=== PATIENT | female | born 1995 | race Two or more races ===

== ENCOUNTER 2017-03-25 01:02 | Emergency (ER) | payer MEDICAID ==
[2017-03-25 01:59] LABS: ABSOLUTE EOSINOPHILS # (AUTO) 0.2 10^3/uL (0.0-0.6); ABSOLUTE LYMPHOCYTES (AUTO) 2.1 10^3/uL (0.5-4.7); ABSOLUTE MONOCYTES (AUTO) 0.7 10^3/uL (0.1-1.4); ABSOLUTE NEUT (AUTO) 5.6 10^3/uL (1.7-8.2); BASOPHILS % (AUTO) 0.4 % (0-2); EOSINOPHILS % (AUTO) 2.6 % (0-6); HEMATOCRIT 32.3 % (36.0-47.0); HEMOGLOBIN 10.3 g/dL (12.0-15.5); HGB HCT DIFFERENCE -1.4; LYMPHOCYTES % (AUTO) 23.9 % (13-45); MEAN CORPUSCULAR HEMOGLOBIN 23.8 pg (27.0-33.4); MEAN CORPUSCULAR HGB CONC 31.9 g/dL (32.0-36.0); MEAN CORPUSCULAR VOLUME 75 fl (80-97); MONOCYTES % (AUTO) 7.9 % (3-13); RED BLOOD COUNT 4.32 10^6/uL (3.72-5.28); RED CELL DISTRIBUTION WIDTH 14.8 % (11.5-14.0); SEGMENTED NEUTROPHILS % (AUTO) 65.2 % (42-78); WHITE BLOOD COUNT 8.6 10^3/uL (4.0-10.5)
[2017-03-25 02:05] LABS: APPEARANCE,URINE SLIGHTLY-CLOUDY; BILIRUBIN,URINE NEGATIVE (NEGATIVE); GLUCOSE, URINE NEGATIVE (NEGATIVE); KETONES,URINE NEGATIVE (NEGATIVE); LEUKOCYTE ESTERASE,URINE NEGATIVE (NEGATIVE); NITRITE,URINE NEGATIVE (NEGATIVE); PROTEIN,URINE 30 mg/dL (NEGATIVE); URINE SPECIFIC GRAVITY 1.023; UROBILINOGEN,URINE NEGATIVE mg/dL (<2.0)
[2017-03-25 02:11] LABS: ALANINE AMINOTRANSFERASE 26 U/L (9-52); ALBUMIN 3.7 g/dL (3.5-5.0); ALKALINE PHOSPHATASE 75 U/L (38-126); ANION GAP 12 (5-19); ASPARTATE AMINO TRANSFERASE 20 U/L (14-36); BILIRUBIN,DIRECT 0.3 mg/dL (0.0-0.4); BILIRUBIN,TOTAL 0.3 mg/dL (0.2-1.3); BLOOD UREA NITROGEN 10 mg/dL (7-20); CALCIUM 9.6 mg/dL (8.4-10.2); CARBON DIOXIDE 28 mmol/L (22-30); CHLORIDE 104 mmol/L (98-107); CREATININE RESULT 0.86 mg/dL (0.52-1.25); GLUCOSE 118 mg/dL (75-110); LIPASE 43.6 U/L (23-300); POTASSIUM 3.7 mmol/L (3.6-5.0); SODIUM 143.7 mmol/L (137-145); TOTAL PROTEIN 7.8 g/dL (6.3-8.2)
--- NOTE | 2017-03-25 03:31 | ER Document Report ---
ED General - General Chief Complaint: Abdominal Pain Stated Complaint: ABDOMINAL PAIN Time Seen by Provider: 03/25/17 02:52 Notes: Patient is a 21-year-old female who presents with complaint of left-sided pain. Pain is mainly left back and comes on left side. She says it has been intermittent for months. She said today became worse. She denies being on her menstrual period. No dysuria. No abnormal vaginal discharge or bleeding. No fevers. No history of kidney stones. No other complaints at this time. TRAVEL OUTSIDE OF THE [place] IN LAST 30 DAYS: No - Related Data Allergies/Adverse Reactions: ibuprofen [From Advil] Adverse Reaction (Verified 03/25/17 01:09) naproxen [From Aleve] Adverse Reaction (Verified 03/25/17 01:09) quetiapine fumarate [From Seroquel] Adverse Reaction (Verified 07/31/16 08:50) felt like brain exploded Past Medical History - Social History Smoking Status: Unknown if Ever Smoked Chew tobacco use (# tins/day): No Frequency of alcohol use: None Drug Abuse: None Family History: Reviewed & Not Pertinent Patient has suicidal ideation: No Patient has homicidal ideation: No Renal/ Medical History: Denies: Hx Peritoneal Dialysis Psychiatric Medical History: Reports: Hx Attention Deficit Hyperactivity Disorder, Hx Depression - Immunizations Immunizations up to date: Yes Hx Diphtheria, Pertussis, Tetanus Vaccination: Yes Review of Systems - Review of Systems Notes: My Normal Review Basic REVIEW OF SYSTEMS: CONSTITUTIONAL : Denies fever, chills, or sweats. Denies recent illness. CARDIOVASCULAR: Denies chest pain. RESPIRATORY: Denies cough, cold, or chest congestion. Denies shortness of breath, difficulty breathing, or wheezing. GASTROINTESTINAL: Denies abdominal pain. Denies nausea, vomiting, or diarrhea. Denies constipation. Last BM: GENITOURINARY: Denies difficulty urinating, painful urination, burning, frequency, or blood in urine. FEMALE GENITOURINARY: Denies vaginal bleeding, abnormal or irregular periods. LMP: MUSCULOSKELETAL: Back pain SKIN: Denies rash or skin lesions. NEUROLOGICAL: Denies altered mental status or loss of consciousness. Denies headache. Denies weakness or paralysis or loss of use of either side. Denies problems with gait or speech. Denies sensory or motor loss. ALL OTHER SYSTEMS REVIEWED AND NEGATIVE. Physical Exam - Vital signs Vitals: Temp Pulse Resp BP Pulse Ox 98 F 85 16 105/69 98 03/25/17 01:07 03/25/17 01:07 03/25/17 01:07 03/25/17 01:07 03/25/17 01:07 - Notes Notes: General Appearance: Well nourished, alert, cooperative, no acute distress, no obvious discomfort. Vitals: reviewed, See vital signs table. Head: no swelling or tenderness to the head Eyes: PERRL, EOMI, Conjuctiva clear Mouth: No decreasd moisture Lungs: No wheezing, No rales, No rhonci, No accessory muscle use, good air exchange bilaterally. Heart: Normal rate, Regular rythm, No murmur, no rub Abdomen: Normal BS, soft, No rigidity, mild left flank and left lower anterior abdominal tenderness to palpation., No guarding, no rebound, no abdominal masses , no organomegaly. Pelvic exam: Normal external genitalia. No blood on speculum exam. no abnormal discharge. some pain during exam. Back: Mild left-sided back pain to palpation. Extremities: strength 5/5 in all extremities, good pulses in all extremities, no swelling or tenderness in the extremities, no edema. Skin: warm, dry, appropriate color, no rash Neuro: speech clear, oriented x 3, normal affect, responds appropriately to questions. Course - Vital Signs Vital signs: Temp Pulse Resp BP Pulse Ox 98.0 F 88 16 108/70 100 03/25/17 05:00 03/25/17 05:00 03/25/17 05:00 03/25/17 05:00 03/25/17 05:00 - Laboratory Result Diagrams: 03/25/17 01:35 03/25/17 01:35 Laboratory results interpreted by me: 03/25/17 03/25/17 03/25/17 01:35 01:35 01:40 Hgb 10.3 L Hct 32.3 L MCV 75 L MCH 23.8 L MCHC 31.9 L RDW 14.8 H Glucose 118 H Urine Protein 30 H Urine Blood LARGE H - Transfer of Care Notes: 03/25/17 06:[address] scan showed mild diverticulitis. There is also a cystic type structure and therefore we did obtain an ultrasound which shows that this is related to the ovary. I did inform the patient it is extremely important that she does follow up with repeat ultrasounds. I gave her the number to the wrapper sorter pig iron loader, Dr. Cox, for evaluation. Also the patient is very young to have diverticulitis. I think support she follows up with a GI doctor to see if she needs potential colonoscopy to determine if there is anything else that could be causing this appearance on the CT scan. I will place her on antibiotics. I encouraged her to follow-up closely with the GI physician. Encouraged to return to ER if she has severe abdominal pain, fevers, vomiting, or if she feels that she is worsening in any way. Patient agrees with plan and will be discharged home. Dictation of this chart was performed using voice recognition software; therefore, there may be some unintended grammatical errors. Discharge - Discharge Clinical Impression: Lesion of ovary Abdominal pain Qualifiers: Abdominal location: left lower quadrant Qualified Code(s): R10.32 - Left lower quadrant pain Diverticulitis Qualifiers: Diverticulitis site: large intestine Diverticulitis bleeding: without bleeding Diverticulitis complication: without perforation or abscess Qualified Code(s): K57.32 - Diverticulitis of large intestine without perforation or abscess without bleeding Condition: Good Disposition: HOME, SELF-CARE Instructions: Oral Narcotic Medication ([facility]) Additional Instructions: Your CT scan showed mild diverticulitis which would explain your pain and diarrhea. Please take the antibiotics as prescribed. Diverticulitis in young people is rare and therefore you need to follow up with the GI physician, Dr. Phillips, for reevaluation and possible colonoscopy to make sure there is not another cause to the findings on your CT scan. Your ultrasound showed a lesion on your ultrasound. This needs to be followed up by the Machinery Cleaner to be followed with repeat ultrasounds to make sure it is not increaseing in size. If it is changing you may need a biopsy to rule out any form of ovarian cancer. Please return to the ER immediately if you have worsening pain, intractable vomiting, bloody stool, or feel unwell. Prescriptions: Ciprofloxacin HCl [Cipro 500 mg Tablet] 500 mg PO BID #14 tablet Metronidazole [Flagyl 500 mg Tablet] 500 mg PO Q6H #28 tablet Forms: Return to Work Referrals: PENNY PHILLIPS MD [ACTIVE STAFF] - Follow up in 3-5 days TOMAS CHOWDHURY MD [ACTIVE STAFF] - Follow up in 3-5 days
--- NOTE | 2017-03-25 03:48 | RADIOLOGY REPORT (SQ) ---
EXAM DESCRIPTION: CT LTD RENAL STONE PROTOCOL ON COMPLETED DATE/TIME: 03/25/2017 3:20 am REASON FOR STUDY: left abdominal pain COMPARISON: None. TECHNIQUE: CT scan of the abdomen and pelvis performed without intravenous or oral contrast. Images reviewed with lung, soft tissue, and bone windows. Reconstructed coronal and sagittal MPR images revi ewed. All images stored on PACS. All CT scanners at this facility use dose modulation, iterative reconstruction, and/or weight based d osing when appropriate to reduce radiation dose to as low as reasonably achievable (ALARA). [facility]: Dose Right [facility]: CareDose [facility]: Dose Right [facility]: Teradose 4D [facility]: [employer] RADIATION DOSE: 6.21mGy. LIMITATIONS: None. FINDINGS: LOWER CHEST: No significant findings. No nodules or infiltrates. NON-CONTRASTED LIVER, SPLEEN, ADRENALS: Evaluation limited by lack of IV contrast. No identified sign ificant masses. PANCREAS: No masses. No peripancreatic inflammatory changes. GALLBLADDER: No identified stones by CT criteria. No inflammatory changes to suggest cholecystitis. RIGHT KIDNEY AND URETER: No suspicious masses. Assessment limited by lack of IV contrast. Punctate nephrolithiasis. No hydronephrosis or hydroureter. LEFT KIDNEY AND URETER: No suspicious masses. Assessment limited by lack of IV contrast. Renal ston es measuring up to 0.4 cm. No hydronephrosis or hydroureter. AORTA AND RETROPERITONEUM: No aneurysm. No retroperitoneal masses or adenopathy. BOWEL AND PERITONEAL CAVITY: Mild proximal sigmoid diverticulitis. Likely cystic prominence of bilat eral ovarian fossa measuring up to 5.6 cm on the left and 5.3 cm on the right. APPENDIX: Normal. PELVIS, BLADDER, AND ABDOMINAL WALL:Nonspecific prominence of likely, bilateral ovaries measuring up to 5.6 cm on the left and 5.3 cm on the right No free fluid. Bladder normal. BONES: No significant findings. OTHER: No other significant finding. IMPRESSION: 1. Mild proximal sigmoid diverticulitis. There is cystic prominence of within bilatera l ovarian fossae probably due to prominent ovaries measuring up to 5.6 cm; cannot completely exclude a diverticular/tubo-ovarian abscess. Consider further evaluation with pelvic sonogram and/or IV/oral contrast CT correlation. 2. Bilateral nephrolithiasis. TECHNICAL DOCUMENTATION: JOB ID: [id number] Quality ID # [id number]: Final reports with documentation of one or more dose reduction techniques (e.g., Au tomated exposure control, adjustment of the mA and/or kV according to patient size, use of iterative reconstruction technique) 2010 [employer]- All Rights Reserved
--- NOTE | 2017-03-25 05:54 | RADIOLOGY REPORT (SQ) ---
EXAM DESCRIPTION: U/S NON OB PEL TV W/DOPPLER COMPLETED DATE/TIME: 03/25/2017 5:41 am REASON FOR STUDY: cystic mass seen on CT COMPARISON: None. TECHNIQUE: Dynamic and static grayscale images acquired of the pelvis via transvaginal approach and recorded on PACS. Additional selected color Doppler and spectral images recorded. LIMITATIONS: None. FINDINGS: UTERUS: Contour normal. No mass. ENDOMETRIAL STRIPE: No focal or generalized thickening. No masses. CERVIX: No nabothian cysts. RIGHT OVARY: No abnormal masses. RIGHT OVARY DOPPLER: Normal arterial vascular flow without evidence for torsion. LEFT OVARY: 4.1 x 3.0 x 3.5 cm hypoechoic avascular mass. LEFT OVARY DOPPLER: Normal arterial vascular flow without evidence for torsion. FREE FLUID: None noted. OTHER: No other significant finding. MEASUREMENTS: UTERUS: 7.2 x 4 x 3 cm ENDOMETRIAL STRIPE: 0.3 cm thickness. RIGHT OVARY: 5.1 cm. LEFT OVARY: 5.0 cm. IMPRESSION: 1. Indeterminate 4.1 cm hypoechoic left ovarian lesion; differential diagnosis includes enlarged follicular cyst, endometrioma, or other neoplasm. Ultrasound surveillance recommended in 6 weeks. 2. Endometrial atrophy. 3. No evidence of abscess, as queried. No free fluid. TECHNICAL DOCUMENTATION: JOB ID: [id number] [employer]- All Rights Reserved
[2017-03-25] MEDS ORDERED: METRONIDAZOLE 500 MG TABLET PO ONE (06:03)
[2017-03-25] MEDS ORDERED: CIPROFLOXACIN HCL 500 MG TABLET PO ONE (06:03)
[2017-03-25] MEDS ORDERED: HYDROCODONE/ACETAMINOPHEN 5-325 MG 6 TAB/DSPK PO PRN (06:04)
[2017-03-25 06:19] VITALS: BP 110/71
[2017-03-25 07:24] LABS: CHLAM PCR DETECTED (NOT DETECT)
== END 2017-03-25 06:17 | disposition home or self-care (01) ==
LOC: ER 01:02
DX: K57.32 Diverticulitis of large intestine without perforation or abscess without bleeding (principal); N83.9 Noninflammatory disorder of ovary, fallopian tube and broad ligament, unspecified; R10.32 Left lower quadrant pain; M54.9 Dorsalgia, unspecified
CPT/HCPCS: 99284; 36415; 87210; 83690; 85025; 81025; 80053; 81001; 87491; 87591; 76830; 93976; 76380; J3490 ×2

== ENCOUNTER 2017-05-23 21:38 | Emergency (ER) | payer MEDICAID ==
[2017-05-23 22:33] VITALS: BP 114/70
--- NOTE | 2017-05-23 22:47 | ER Document Report ---
ED Medical Screen (RME) - General Chief Complaint: Sore Throat Stated Complaint: BACK PAIN/LUMP ON CHEST Time Seen by Provider: 05/23/17 22:46 Notes: 21-year-old female, chief complaint of sore throat and swollen lymph nodes in her neck. Denies fever. States her boyfriend was also sick. Denies any other symptoms. TRAVEL OUTSIDE OF THE [place] IN LAST 30 DAYS: No - Related Data Allergies/Adverse Reactions: ibuprofen [From Advil] Adverse Reaction (Verified 05/23/17 22:31) naproxen [From Aleve] Adverse Reaction (Verified 05/23/17 22:31) quetiapine fumarate [From Seroquel] Adverse Reaction (Verified 05/23/17 22:31) felt like brain exploded Past Medical History Renal/ Medical History: Denies: Hx Peritoneal Dialysis Psychiatric Medical History: Reports: Hx Attention Deficit Hyperactivity Disorder, Hx Depression Surgical Hx: Negative - Immunizations Immunizations up to date: Yes Hx Diphtheria, Pertussis, Tetanus Vaccination: Yes Physical Exam - Vital signs Vitals: Temp Pulse Resp BP Pulse Ox 99.6 F 83 17 114/70 98 05/23/17 22:30 05/23/17 22:30 05/23/17 22:30 05/23/17 22:30 05/23/17 22:30 - HEENT Pharynx: Erythema, Tonsillar hypertrophy. No: Uvular edema, Potential airway comprom. Neck: Anterior cervical chain - Abdominal Tenderness: Tender - Complains of pain with palpation of the left abdomen in the mid upper quadrants, limited exam because of sitting Course - Vital Signs Vital signs: Temp Pulse Resp BP Pulse Ox 99.6 F 83 17 114/70 98 05/23/17 22:30 05/23/17 22:30 05/23/17 22:30 05/23/17 22:30 05/23/17 22:30
[2017-05-23] MEDS ORDERED: DEXAMETHASONE SOD PHOS INJ 10 MG/1 ML VIAL IM ONE (23:36)
[2017-05-23] MEDS ORDERED: PENICILLIN V POTASSIUM 500 MG TABLET PO ONE (23:36)
--- NOTE | 2017-05-23 23:38 | ER Document Report ---
HPI - HPI Patient complains to provider of: sore throat Pain Level: 5 Context: Patient is a 21 year old female that comes to the ED for chief complaint of sore throat for the past 2 days. She also reports pain at the front of her neck. She denies difficulty breathing, fever, headache. She denies any daily medications, had a recent menstrual cycle. - REPRODUCTIVE LMP: currently spotting Reproductive: DENIES: : - DERM Skin Color: Normal Past Medical History - General Information source: Patient - Social History Smoking Status: Never Smoker Drug Abuse: None Lives with: Family Family History: Reviewed & Not Pertinent - Medical History Medical History: Negative Renal/ Medical History: Denies: Hx Peritoneal Dialysis Psychiatric Medical History: Reports: Hx Attention Deficit Hyperactivity Disorder, Hx Depression Surgical Hx: Negative - Immunizations Immunizations up to date: Yes Hx Diphtheria, Pertussis, Tetanus Vaccination: Yes Vertical Provider Document - CONSTITUTIONAL General Appearance: WD/WN, No Apparent Distress - Patient is talkative and well- appearing - INFECTION CONTROL TRAVEL OUTSIDE OF THE [place] IN LAST 30 DAYS: No - HEENT HEENT: Atraumatic, Normocephalic, Pharyngeal Exudate, Pharyngeal Tenderness, Pharyngeal Erythema. negative: Normal ENT Exam - NECK Neck: Lymphadenopathy-Left, Lymphadenopathy-Right - RESPIRATORY Respiratory: Breath Sounds Normal, No Respiratory Distress O2 Sat by Pulse Oximetry: 98 - CARDIOVASCULAR Cardiovascular: Regular Rate, Regular Rhythm - GI/ABDOMEN Gastrointestinal: Abdomen Soft, Abdomen Non-Tender - NEURO Motor/Sensory: No Motor Deficit, No Sensory Deficit - DERM Integumentary: Warm, Dry, No Rash Course - Re-evaluation Re-evalutation: Physical examination is consistent with tonsillar hypertrophy no evidence of peritonsillar abscess, Vitaliy's angina, or other concerning abnormality. Strep test is positive. No splenomegaly on examination. Treating with penicillin, dexamethasone. Discussed follow-up and return precautions. Patient states understanding and agreement. - Vital Signs Vital signs: Temp Pulse Resp BP Pulse Ox 99.6 F 83 17 114/70 98 05/23/17 22:30 05/23/17 22:30 05/23/17 22:30 05/23/17 22:30 05/23/17 22:30 Discharge - Discharge Clinical Impression: Strep pharyngitis, Anterior cervical lymphadenopathy Condition: Stable Disposition: HOME, SELF-CARE Additional Instructions: You are positive for strep throat. Take the penicillin as prescribed to completion. Take Tylenol or ibuprofen for pain if needed. Follow-up with primary care. Return to emergency department for any concerning or worsening symptoms including spiking fever, difficulty swallowing secretions, or any other concerning symptoms. Prescriptions: Penicillin V Potassium [Penicillin Vk 500 mg Tablet] 500 mg PO BID #20 tablet
== END 2017-05-23 23:45 | disposition home or self-care (01) ==
LOC: ER 21:38
DX: J02.0 Streptococcal pharyngitis (principal); R59.1 Generalized enlarged lymph nodes; M54.2 Cervicalgia
CPT/HCPCS: 99283; 96372; 87880; J3490; J1100

== ENCOUNTER 2017-10-17 17:31 | Emergency (ER) | payer MEDICAID ==
[2017-10-17 18:00] VITALS: BP 117/77
--- NOTE | 2017-10-17 20:29 | ER Document Report ---
ED ENT - General Chief Complaint: Sore Throat Stated Complaint: SORE THROAT Time Seen by Provider: 10/17/17 19:39 Mode of Arrival: Ambulatory Information source: Patient Notes: 21-year-old female presents to ED for complaint of sore throat nasal congestion pain in her ears and concerned that she is and does not have the money to get a test. She is alert oriented pupils equal react light steady gait speaks in full sentences no difficulty swallowing or talking. TRAVEL OUTSIDE OF THE [place] IN LAST 30 DAYS: No - HPI Patient complains to provider of: Ear problem, Nose problem, Throat problem Onset: Other - "Last few days " Onset/Duration: Intermittent Quality of pain: Sharp Severity: Moderate Pain Level: 4 Context: Recent Illness Location of pain: Nose, Sinus, Throat Associated symptoms: Cough, Ear pain, Runny nose, Sinus pain, Sinus drainage Similar symptoms previously: Yes Recently seen / treated by doctor: No - Related Data Allergies/Adverse Reactions: ibuprofen [From Advil] Adverse Reaction (Verified 10/17/17 17:31) naproxen [From Aleve] Adverse Reaction (Verified 10/17/17 17:31) quetiapine fumarate [From Seroquel] Adverse Reaction (Verified 10/17/17 17:31) felt like brain exploded Past Medical History - General Information source: Patient - Social History Smoking Status: Current Every Day Smoker Cigarette use (# per day): Yes - 5 cigarettes a day Chew tobacco use (# tins/day): No Smoking Education Provided: Yes - 3 minutes Frequency of alcohol use: Occasional Drug Abuse: Marijuana Occupation: None Lives with: Spouse/Significant other Family History: Reviewed & Not Pertinent Patient has suicidal ideation: No Patient has homicidal ideation: No - Past Medical History Cardiac Medical History: Reports: None Pulmonary Medical History: Reports: None EENT Medical History: Reports: None Neurological Medical History: Reports: None Endocrine Medical History: Reports: None Renal/ Medical History: Reports: Hx Pelvic Inflammatory Disease Malignancy Medical History: Reports: None GI Medical History: Reports: None Musculoskeltal Medical History: Reports None Psychiatric Medical History: Reports: Hx Attention Deficit Hyperactivity Disorder, Hx Depression Traumatic Medical History: Reports: None Infectious Medical History: Reports: None Surgical Hx: Negative Past Surgical History: Reports: None - Immunizations Immunizations up to date: Yes Hx Diphtheria, Pertussis, Tetanus Vaccination: Yes Review of Systems - Review of Systems Constitutional: Recent illness EENT: Nose discharge, Sinus discharge, Throat pain Cardiovascular: No symptoms reported Respiratory: Cough Gastrointestinal: No symptoms reported Genitourinary: No symptoms reported Female Genitourinary: No symptoms reported Musculoskeletal: No symptoms reported Skin: No symptoms reported Hematologic/Lymphatic: No symptoms reported Neurological/Psychological: No symptoms reported -: Yes All other systems reviewed and negative Physical Exam - Vital signs Vitals: Temp Pulse Resp BP Pulse Ox 99.3 F 109 H 20 117/77 99 10/17/17 18:00 10/17/17 18:00 10/17/17 18:00 10/17/17 18:00 10/17/17 18:00 Interpretation: Normal - General General appearance: Appears well, Alert - HEENT Head: Normocephalic, Atraumatic Eyes: Normal Pupils: PERRL Ears: Normal External canal: Normal Tympanic membrane: Normal Sinus: Normal Nasal: Purulent discharge, Swelling Mouth/Lips: Normal Mucous membranes: Normal Pharynx: Post nasal drainage, Tonsillar hypertrophy, Other - Tonsil stones. No : Exudate Neck: Normal - Respiratory Respiratory status: No respiratory distress Chest status: Nontender Breath sounds: Normal, Nonproductive cough Chest palpation: Normal - Cardiovascular Rhythm: Regular Heart sounds: Normal auscultation Murmur: No - Abdominal Inspection: Normal Distension: No distension Bowel sounds: Normal Tenderness: Nontender Organomegaly: No organomegaly - Back Back: Normal, Nontender - Extremities General upper extremity: Normal inspection, Nontender, Normal color, Normal ROM , Normal temperature General lower extremity: Normal inspection, Nontender, Normal color, Normal ROM , Normal temperature, Normal weight bearing. No: Lizz's sign - Neurological Neuro grossly intact: Yes Cognition: Normal Orientation: AAOx4 [place] Coma Scale Eye Opening: Spontaneous [place] Coma Scale Verbal: Oriented [place]im Coma Scale Motor: Obeys Commands [place] Coma Scale Total: 15 Speech: Normal Motor strength normal: LUE, RUE, LLE, RLE Sensory: Normal - Psychological Associated symptoms: Normal affect, Normal mood - Skin Skin Temperature: Warm Skin Moisture: Dry Skin Color: Normal Course - Re-evaluation Re-evalutation: 10/18/17 01:41 Lab results discussed with patient patient discharged home. Patient had assessment consistent with upper respiratory infection and a viral sore throat. She insisted that she has frequent strep and she would rather be tested. She also stated she was concerned that she was and did not have the money to buy a test. Swab was sent for a strep test and urine sent for test both of which were negative. - Vital Signs Vital signs: Temp Pulse Resp BP Pulse Ox 99.3 F 109 H 20 117/77 99 10/17/17 18:00 10/17/17 18:00 10/17/17 18:00 10/17/17 18:00 10/17/17 18:00 - Laboratory Laboratory results interpreted by me: 10/17/17 20:20 Urine Urobilinogen 2.0 H Urine Ascorbic Acid 40 H Discharge - Discharge Clinical Impression: URI (upper respiratory infection) Qualifiers: URI type: unspecified URI Qualified Code(s): J06.9 - Acute upper respiratory infection, unspecified Disposition: HOME, SELF-CARE Instructions: Family Physicians / Practices Additional Instructions: UPPER RESPIRATORY ILLNESS: You have a viral infection of the respiratory passages -- a "cold." This common infection causes nasal congestion, drainage, and often sore throat and cough. It is highly contagious. The disease usually lasts about 10 to 14 days. There is no "cure" for the viral infection -- it must run its course. If there is a complication, such as bacterial infection in the nose, sinuses, middle ear, or bronchial tubes, antibiotics may be required. The antibiotics won't affect the virus. Drink plenty of fluids. A humidifier may help. An expectorant medication or decongestant may make you more comfortable. Use acetaminophen or ibuprofen for fever or aches. See the doctor if fever persists over two days, if there is any significant worsening of your symptoms, or if you simply fail to improve as expected. DECONGESTANT MEDICATION: A decongestant medicine has been prescribed. Often this medicine is combined in the same tablet with an antihistamine or expectorant. This type of medicine is helpful in treating a bad cold or sinus condition, as well as in treatment of the nasal congestion of hay fever. It is not of much benefit for lung infections. Decongestant medicines are related to stimulants. They can cause an increase in blood pressure and heart rate. Persons with heart disease and high blood pressure should not take decongestants without discussing this with the physician. If you develop palpitations, chest pain, headache, or tremors, stop the medicine and consult your physician. COUGH-SUPPRESSANT & EXPECTORANT MEDICATION: You are to use a cough medication as needed for relief of symptoms. This medicine is a combination of an expectorant (to make the mucous thinner and more easily "coughed up") and a cough suppressant (to reduce the frequency of coughing). The cough-suppressant medicine is related to narcotics. You may experience mild nausea and sleepiness. Some patients who are very sensitive to narcotics may have stomach pain from this medicine. Taking the medicine with food reduces these side effects. Do not drive or work with machinery until you know how this medicine affects you. The expectorant should have no side effects. Iodine-containing expectorants (such as organidin) should not be taken by persons with active thyroid disease unless approved by your doctor. Call the doctor if you develop shortness of breath, hives, rash, itching, lightheadedness, or severe nausea and vomiting. USE OF ACETAMINOPHEN (Tylenol): Acetaminophen may be taken for pain relief or fever control. It's much safer than aspirin, offering a wider range of "safe" dosages. It is safe during . Some brand names are Tylenol, Panadol, Datril, Anacin 3, Tempra, and Liquiprin. Acetaminophen can be repeated every four hours. The following are maximum recommended dosages: >89 pounds or adults 650 mg to 900 mg Acetaminophen can be repeated every four hours. Maximum dose not to exceed 4000 mg a day. SMOKING: If you smoke, you should stop smoking. The tar and chemicals in cigarette smoke are harmful. Smoking has been shown to cause: emphysema chronic bronchitis lung cancer mouth and throat cancer stomach and pancreas cancer premature aging defects In addition, smoking increases ear and lung infections in children of smokers. FOLLOW-UP CARE: If you have been referred to a physician for follow-up care, call the physician s office for an appointment as you were instructed or within the next two days. If you experience worsening or a significant change in your symptoms, notify the physician immediately or return to the Emergency Department at any time for re-evaluation. Forms: Smoking Cessation Education
[2017-10-17 20:45] LABS: AMORPHOUS SEDIMENT,URINE 1+ /HPF; APPEARANCE,URINE SLIGHTLY-CLOUDY; BILIRUBIN,URINE NEGATIVE (NEGATIVE); COLOR,URINE YELLOW; GLUCOSE, URINE NEGATIVE (NEGATIVE); KETONES,URINE NEGATIVE (NEGATIVE); LEUKOCYTE ESTERASE,URINE NEGATIVE (NEGATIVE); NITRITE,URINE NEGATIVE (NEGATIVE); PROTEIN,URINE NEGATIVE (NEGATIVE); URINE SPECIFIC GRAVITY 1.024
== END 2017-10-17 21:10 | disposition home or self-care (01) ==
LOC: ER 17:31
DX: J02.9 Acute pharyngitis, unspecified (principal); J35.8 Other chronic diseases of tonsils and adenoids; R09.81 Nasal congestion; H92.03 Otalgia, bilateral; J34.89 Other specified disorders of nose and nasal sinuses; R05 Cough; F17.210 Nicotine dependence, cigarettes, uncomplicated; Z71.6 Tobacco abuse counseling; Z32.02 Encounter for pregnancy test, result negative
CPT/HCPCS: 81001; 81025; 87070; 87880; 99283

== ENCOUNTER 2017-11-25 13:34 | Emergency (ER) | payer MEDICAID ==
[2017-11-25] MEDS ORDERED: ONDANSETRON 4 MG TAB.RAPDIS PO ONE (15:44)
[2017-11-25] MEDS ORDERED: ACETAMINOPHEN 325 MG TABLET PO ONE (16:04)
[2017-11-25 16:57] LABS: ABSOLUTE EOSINOPHILS # (AUTO) 0.1 10^3/uL (0.0-0.6); ABSOLUTE LYMPHOCYTES (AUTO) 2.4 10^3/uL (0.5-4.7); ABSOLUTE MONOCYTES (AUTO) 0.5 10^3/uL (0.1-1.4); ABSOLUTE NEUT (AUTO) 3.6 10^3/uL (1.7-8.2); BASOPHILS % (AUTO) 0.7 % (0-2); EOSINOPHILS % (AUTO) 1.9 % (0-6); HEMATOCRIT 36.1 % (36.0-47.0); HEMOGLOBIN 11.8 g/dL (12.0-15.5); MEAN CORPUSCULAR HEMOGLOBIN 24.3 pg (27.0-33.4); MEAN CORPUSCULAR HGB CONC 32.5 g/dL (32.0-36.0); MEAN CORPUSCULAR VOLUME 75 fl (80-97); PLATELET COUNT 301 10^3/uL (150-450); RED BLOOD COUNT 4.83 10^6/uL (3.72-5.28); RED CELL DISTRIBUTION WIDTH 15.5 % (11.5-14.0); SEGMENTED NEUTROPHILS % (AUTO) 53.4 % (42-78); TOTAL CELLS COUNTED % (AUTO) 100 %; WHITE BLOOD COUNT 6.8 10^3/uL (4.0-10.5)
[2017-11-25 17:05] LABS: APPEARANCE,URINE CLEAR; BILIRUBIN,URINE NEGATIVE (NEGATIVE); COLOR,URINE STRAW; GLUCOSE, URINE NEGATIVE (NEGATIVE); KETONES,URINE NEGATIVE (NEGATIVE); LEUKOCYTE ESTERASE,URINE NEGATIVE (NEGATIVE); NITRITE,URINE NEGATIVE (NEGATIVE); PROTEIN,URINE NEGATIVE (NEGATIVE); URINE SPECIFIC GRAVITY 1.004; UROBILINOGEN,URINE NEGATIVE mg/dL (<2.0)
[2017-11-25 17:13] LABS: ALANINE AMINOTRANSFERASE 28 U/L (9-52); ALBUMIN 4.4 g/dL (3.5-5.0); ALKALINE PHOSPHATASE 49 U/L (38-126); ANION GAP 10 (5-19); ASPARTATE AMINO TRANSFERASE 25 U/L (14-36); BILIRUBIN,DIRECT 0.1 mg/dL (0.0-0.4); BILIRUBIN,TOTAL 0.6 mg/dL (0.2-1.3); BLOOD UREA NITROGEN 8 mg/dL (7-20); CALCIUM 9.7 mg/dL (8.4-10.2); CARBON DIOXIDE 24 mmol/L (22-30); CHLORIDE 107 mmol/L (98-107); GLUCOSE 74 mg/dL (75-110); SODIUM 141.1 mmol/L (137-145); TOTAL PROTEIN 7.4 g/dL (6.3-8.2)
--- NOTE | 2017-11-25 17:21 | ER Document Report ---
ED General - General Chief Complaint: Headache Stated Complaint: HEADACHE Time Seen by Provider: 11/25/17 15:36 TRAVEL OUTSIDE OF THE [place] IN LAST 30 DAYS: No - HPI Patient complains to provider of: i think i have the flu Onset: Yesterday Onset/Duration: Gradual Associated symptoms: Chills, Nausea Exacerbated by: Denies Relieved by: Denies Similar symptoms previously: No Recently seen / treated by doctor: No Notes: Patient states the last few days she has not been feeling well. She states she is taking in p.o. with out difficulty. She did have a little bit of nausea today. She also states she has a mild diffuse headache. - Related Data Allergies/Adverse Reactions: ibuprofen [From Advil] Adverse Reaction (Verified 11/25/17 13:37) naproxen [From Aleve] Adverse Reaction (Verified 11/25/17 13:37) quetiapine fumarate [From Seroquel] Adverse Reaction (Verified 11/25/17 13:37) felt like brain exploded Past Medical History - General Information source: Patient - Social History Smoking Status: Current Every Day Smoker Frequency of alcohol use: None Drug Abuse: Marijuana Family History: Other - Mom has breast cancer Patient has suicidal ideation: No Patient has homicidal ideation: No - Past Medical History Cardiac Medical History: Reports: None Pulmonary Medical History: Reports: None EENT Medical History: Reports: None Neurological Medical History: Reports: None Endocrine Medical History: Reports: None Renal/ Medical History: Reports: None, Hx Pelvic Inflammatory Disease. Denies : Hx Peritoneal Dialysis Malignancy Medical History: Reports: None GI Medical History: Reports: None Musculoskeltal Medical History: Reports None Skin Medical History: Reports None Psychiatric Medical History: Reports: Hx Attention Deficit Hyperactivity Disorder, Hx Depression, Other - Aspergers Traumatic Medical History: Reports: None Infectious Medical History: Reports: None Past Surgical History: Reports: None - Immunizations Immunizations up to date: Yes Hx Diphtheria, Pertussis, Tetanus Vaccination: Yes Review of Systems - Review of Systems Constitutional: See HPI EENT: No symptoms reported Cardiovascular: No symptoms reported Respiratory: No symptoms reported Gastrointestinal: No symptoms reported Genitourinary: No symptoms reported Female Genitourinary: No symptoms reported Musculoskeletal: No symptoms reported Skin: No symptoms reported Hematologic/Lymphatic: No symptoms reported Neurological/Psychological: No symptoms reported Physical Exam - Vital signs Vitals: Temp Pulse Resp BP Pulse Ox 99.7 F 75 16 113/71 98 11/25/17 13:39 11/25/17 13:39 11/25/17 13:39 11/25/17 13:39 11/25/17 13:39 - Notes Notes: PHYSICAL EXAMINATION: GENERAL: Well-appearing, well-nourished and in no acute distress. HEAD: Atraumatic, normocephalic. EYES: Pupils equal round and reactive to light, extraocular movements intact, conjunctiva are normal. ENT: Nares patent, oropharynx clear without exudates. Moist mucous membranes. NECK: Normal range of motion, supple without lymphadenopathy LUNGS: Breath sounds clear to auscultation bilaterally and equal. No wheezes rales or rhonchi. HEART: Regular rate and rhythm without murmurs ABDOMEN: Soft, nontender, nondistended abdomen. No guarding, no rebound. No masses appreciated. Female : deferred Musculoskeletal: Normal range of motion, no pitting or edema. No cyanosis. NEUROLOGICAL: Cranial nerves grossly intact. Normal speech, normal gait. Normal sensory, motor exams PSYCH: Normal mood, normal affect. SKIN: Warm, Dry, normal turgor, no rashes or lesions noted. Course - Re-evaluation Re-evalutation: 11/25/17 17:25 Tolerating p.o. She states she like to leave. - Vital Signs Vital signs: Temp Pulse Resp BP Pulse Ox 99.7 F 75 16 113/71 98 11/25/17 13:39 11/25/17 13:39 11/25/17 13:39 11/25/17 13:39 11/25/17 13:39 - Laboratory Result Diagrams: 11/25/17 16:37 11/25/17 16:37 Laboratory results interpreted by me: 11/25/17 11/25/17 16:37 16:37 Hgb 11.8 L MCV 75 L MCH 24.3 L RDW 15.5 H Glucose 74 L Discharge - Discharge Clinical Impression: Headache Condition: Stable Disposition: HOME, SELF-CARE Instructions: Headache ([facility]) Additional Instructions: Follow up with your physician tomorrow for further care or return to the ED IMMEDIATELY if symptoms worsen or new concerns occur. If you cannot afford to follow up with your primary care physician a list of low cost clinics have been provided at the end of your discharge papers as well.
[2017-11-25 17:43] VITALS: BP 115/71
== END 2017-11-25 17:43 | disposition home or self-care (01) ==
LOC: ER 13:34
DX: R51 Headache (principal); R11.0 Nausea; F17.200 Nicotine dependence, unspecified, uncomplicated; Z88.6 Allergy status to analgesic agent
CPT/HCPCS: 99284; 36415; 85025; 81025; 80053; 81001; J3490; S0119

== ENCOUNTER 2018-03-23 15:19 | Emergency (ER) | payer MEDICAID ==
[2018-03-23 15:35] VITALS: BP 113/74
--- NOTE | 2018-03-23 15:55 | ER Document Report ---
HPI - HPI Pain Level: 4 Context: Patient is a 22-year-old female presents emergency room with a chief complaint of tender swollen area in her left buttock. Patient states his been there for a week and a half. States that it showed up immediately after she shaves the area. She admits to tenderness only to palpation in the sitting but otherwise denies any pain with defecation, ambulating. She denies a previous history of MRSA, abscess. - REPRODUCTIVE Reproductive: DENIES: : Past Medical History - Social History Smoking Status: Current Every Day Smoker Family History: Other - Mom has breast cancer Patient has suicidal ideation: No Patient has homicidal ideation: No Renal/ Medical History: Reports: Hx Pelvic Inflammatory Disease. Denies: Hx Peritoneal Dialysis Psychiatric Medical History: Reports: Hx Attention Deficit Hyperactivity Disorder, Hx Depression - Immunizations Immunizations up to date: Yes Hx Diphtheria, Pertussis, Tetanus Vaccination: Yes Vertical Provider Document - CONSTITUTIONAL Agree With Documented VS: Yes Notes: PHYSICAL EXAM GENERAL: Alert, interacts well. Rectal: Evidence of 1/2 cm fluctuant area with purulent head approximately 2 cm from the rectum without any tenderness on digital exam, fluctuance. There is no evidence of surrounding cellulitis, induration NEUROLOGICAL: Alert and oriented x4. Normal speech. PSYCH: Normal affect, normal mood. SKIN: Warm, dry, normal turgor. No rashes or lesions noted. - INFECTION CONTROL TRAVEL OUTSIDE OF THE [place] IN LAST 30 DAYS: No Course - Re-evaluation Re-evalutation: 03/23/18 15:53 Patient is a 22-year-old female who presents with small superficial abscess x 1.5 weeks without concern for perirectal/anal involvement. I&D performed for 1.5cc of purulent material. Site dressed with sterile dressing and patient on abx for location to rectum. will have her follow up for wound check, did review strict return precautions., - Vital Signs Vital signs: Temp Pulse Resp BP Pulse Ox 99.2 F 81 17 113/74 99 03/23/18 15:32 03/23/18 15:32 03/23/18 15:32 03/23/18 15:32 03/23/18 15:32 Procedures - Incision and Drainage Left Buttock Type: Simple, Single mL's of anesthetic: 0 Blade size: 11 I&D procedure: Betadine prep applied, Sterile dressing applied Incision Method: Incision made by scalpel Amount/type of drainage: 2cc purulent drainage Discharge - Discharge Clinical Impression: Abscess Condition: Good Disposition: HOME, SELF-CARE Additional Instructions: ABSCESS: You have an abscess (boil). This a pus-forming infection, usually due to staph. Some boils may be left to drain on their own, but most require lancing. From the time the tender lump first appears, it may be three or four days before the abscess is ready to patrick. Local heat and rest help at this stage of treatment. An antibiotic may prevent spread of the infection. Once the abscess is opened, packing may be placed into it. This is done so pus is not sealed inside by premature closure of the cavity. The packing will be removed at your follow-up visit or you may be advised to remove it yourself at home. Sometimes this packing must be replaced a few times during healing. The wound will heal with surprisingly little scar. Depending on the size and location of an abscess, healing can take one to four weeks. You may shower and wash the area around the incision site two or three times a day. Antibiotics may be prescribed, but are usually not necessary after an abscess has been drained. If you develop fever, chills, worsening pain, or increasing swelling in the area, call the doctor or return immediately. POST INCISION AND DRAINAGE: You have had an incision made to allow drainage of an abscess. The incision must remain open so that pus and debris can drain from the wound. If the abscess cavity is large, packing is placed. This keeps the tissues from collapsing and trapping pus inside, while the body shrinks the cavity. The packing may need to be replaced every day or two. The physician will instruct you on the packing. Keep a bulky dressing over the area. Replace it if it becomes saturated with blood or pus. Do not disturb the packing (if present). You may shower and cleanse the area with gentle soap and warm water two or three times a day. Local warmth may be soothing, and may promote faster healing. Return if you develop high fever or chills, or if you note spreading redness, increasing swelling, or increasing tenderness. CEPHALEXIN: The antibiotic you've been prescribed is a member of the cephalosporin class. This type of antibiotic covers a wide variety of infections, including those of the skin, lungs, and urinary tract. It's useful for staph infections. This antibiotic is slightly similar to the penicillin family. In rare cases , a person who is allergic to penicillin will also be allergic to this medication. If you have had a severe allergic reaction to penicillin, and have not taken this antibiotic since that time, notify your doctor. Antibiotics which cover many germs ("broad spectrum" antibiotics) are more likely to cause diarrhea or "yeast" infections. Women prone to vaginal yeast problems may suffer an attack after taking this antibiotic. In infants, oral thrush (white spots "stuck" on the cheek) or yeast diaper rash may result. See your doctor if these problems occur. Call at once if you develop itching, hives , shortness of breath, or lightheadedness. FOLLOW-UP CARE: Most simple abscesses will not require a follow up visit. If you had packing placed in the abscess, remove it as instructed by the physician. If you have been referred to a physician for follow-up care, call the physicians office for an appointment as you were instructed or within the next two days. If you experience worsening or a significant change in your symptoms, return to the Emergency Department at any time for re-evaluation. Prescriptions: Cephalexin Monohydrate [Keflex 500 mg Capsule] 500 mg PO Q6H 5 Days capsule Referrals: TRACI GARCIA MD [ACTIVE STAFF] - Follow up in 3-5 days
[2018-03-23] MEDS ORDERED: CEPHALEXIN 500 MG CAPSULE PO ONE (15:56)
== END 2018-03-23 16:03 | disposition home or self-care (01) ==
LOC: ER 15:19
DX: L02.31 Cutaneous abscess of buttock (principal); F17.200 Nicotine dependence, unspecified, uncomplicated
CPT/HCPCS: 99282

== ENCOUNTER 2018-05-06 09:53 | Emergency (ER) | payer MEDICAID ==
[2018-05-06 10:05] VITALS: BP 109/67
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
--- NOTE | 2018-05-06 10:57 | RADIOLOGY REPORT (SQ) ---
EXAM DESCRIPTION: CT HEAD WITHOUT COMPLETED DATE/TIME: 05/06/2018 10:46 am REASON FOR STUDY: hit head on concrete; eval bleed contusion fx Fell 1 week ago, hit head on concrete, headache COMPARISON: CT brain 07/30/2016 TECHNIQUE: Axial images acquired through the brain without intravenous contrast. Images reviewed wi th bone, brain and subdural windows. Additional sagittal and coronal reconstructions were generated. Images stored on PACS. All CT scanners at this facility use dose modulation, iterative reconstruction, and/or weight based d osing when appropriate to reduce radiation dose to as low as reasonably achievable (ALARA). [facility]: Dose Right [facility]: CareDose [facility]: Dose Right [facility]: Teradose 4D [facility]: Accipiter Radar RADIATION DOSE: CT Rad equipment meets quality standard of care and radiation dose reduction techniq ues were employed. CTDIvol: 48.5 mGy. DLP: 854 mGy-cm. mGy. LIMITATIONS: None. FINDINGS: VENTRICLES: Normal size and contour. CEREBRUM: No masses. No hemorrhage. No midline shift. No evidence for acute infarction. Normal gra y/white matter differentiation. No areas of low density in the white matter. CEREBELLUM: No masses. No hemorrhage. No alteration of density. No evidence for acute infarction. EXTRAAXIAL SPACES: No fluid collections. No masses. ORBITS AND GLOBE: No intra- or extraconal masses. Normal contour of globe without masses. CALVARIUM: No fracture. PARANASAL SINUSES: No fluid or mucosal thickening. SOFT TISSUES: No mass or hematoma. OTHER: No other significant finding. IMPRESSION: NORMAL BRAIN CT WITHOUT CONTRAST. EVIDENCE OF ACUTE STROKE: NO. COMMENT: Quality ID # [id number]: Final reports with documentation of one or more dose reduction techniques (e.g., Automated exposure control, adjustment of the mA and/or kV according to patient size, use of iterative reconstruction technique) TECHNICAL DOCUMENTATION: JOB ID: [id number] [employer]- All Rights Reserved Reading location - IP/workstation name: [email or web address]
--- NOTE | 2018-05-06 12:21 | ER Document Report ---
Doctor's Note Notes: 05/06/18 12:02 I signed into chart with intention of seeing patient, however nursing staff tells me that she stormed out of the department and signed out AGAINST MEDICAL ADVICE, I did not have an opportunity to see this patient, examine her or review any testing results with her 05/06/18 12:21
== END 2018-05-06 12:03 | disposition left against medical advice (07) ==
LOC: ER 09:53
DX: R42 Dizziness and giddiness (principal); R41.0 Disorientation, unspecified; H92.01 Otalgia, right ear; W22.042A Striking against wall of swimming pool causing other injury, initial encounter; Y93.11 Activity, swimming; Z53.20 Procedure and treatment not carried out because of patient's decision for unspecified reasons
CPT/HCPCS: 70450; 99281; 99283

== ENCOUNTER 2019-06-19 15:37 | Emergency (ER) | payer SELFPAY ==
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
[2019-06-19] MEDS ORDERED: ZIPRASIDONE MESYLATE INJ/PF 20 MG SDV IM ONE (17:00)
[2019-06-19 17:58] LABS: APPEARANCE,URINE CLEAR; BILIRUBIN,URINE NEGATIVE (NEGATIVE); COLOR,URINE YELLOW; GLUCOSE, URINE NEGATIVE (NEGATIVE); KETONES,URINE NEGATIVE (NEGATIVE); LEUKOCYTE ESTERASE,URINE NEGATIVE (NEGATIVE); NITRITE,URINE NEGATIVE (NEGATIVE); PROTEIN,URINE NEGATIVE (NEGATIVE); URINE SPECIFIC GRAVITY 1.009; UROBILINOGEN,URINE NEGATIVE mg/dL (<2.0)
[2019-06-19 18:10] LABS: URINE AMPHETAMINES SCREEN NEGATIVE; URINE BARBITURATES SCREEN NEGATIVE; URINE BENZODIAZEPINES SCREEN UNCONFIRMED POSITIVE; URINE COCAINE SCREEN UNCONFIRMED POSITIVE; URINE MARIJUANA (THC) SCREEN UNCONFIRMED POSITIVE; URINE METHADONE SCREEN NEGATIVE; URINE PHENCYCLIDINE SCREEN NEGATIVE
[2019-06-19 19:36] LABS: ABSOLUTE BASOPHILS # (AUTO) 0.1 10^3/uL (0.0-0.2); ABSOLUTE EOSINOPHILS # (AUTO) 0.3 10^3/uL (0.0-0.6); ABSOLUTE LYMPHOCYTES (AUTO) 2.5 10^3/uL (0.5-4.7); ABSOLUTE MONOCYTES (AUTO) 0.7 10^3/uL (0.1-1.4); ABSOLUTE NEUT (AUTO) 5.2 10^3/uL (1.7-8.2); BASOPHILS % (AUTO) 0.6 % (0-2); EOSINOPHILS % (AUTO) 3.2 % (0-6); HEMATOCRIT 36.7 % (36.0-47.0); LYMPHOCYTES % (AUTO) 28.5 % (13-45); MEAN CORPUSCULAR HEMOGLOBIN 24.9 pg (27.0-33.4); MEAN CORPUSCULAR HGB CONC 32.6 g/dL (32.0-36.0); MEAN CORPUSCULAR VOLUME 76 fl (80-97); PLATELET COUNT 266 10^3/uL (150-450); RED BLOOD COUNT 4.81 10^6/uL (3.72-5.28); RED CELL DISTRIBUTION WIDTH 13.7 % (11.5-14.0); SEGMENTED NEUTROPHILS % (AUTO) 59.7 % (42-78); TOTAL CELLS COUNTED % (AUTO) 100 %; WHITE BLOOD COUNT 8.7 10^3/uL (4.0-10.5)
[2019-06-19 19:47] LABS: ALBUMIN 4.1 g/dL (3.5-5.0); ALKALINE PHOSPHATASE 58 U/L (38-126); ANION GAP 8 (5-19); ASPARTATE AMINO TRANSFERASE 23 U/L (14-36); BILIRUBIN,DIRECT 0.1 mg/dL (0.0-0.4); BILIRUBIN,TOTAL 0.4 mg/dL (0.2-1.3); BLOOD UREA NITROGEN 9 mg/dL (7-20); CALCIUM 9.3 mg/dL (8.4-10.2); CARBON DIOXIDE 24 mmol/L (22-30); CHLORIDE 108 mmol/L (98-107); GLUCOSE 80 mg/dL (75-110); POTASSIUM 3.8 mmol/L (3.6-5.0); TOTAL PROTEIN 7.1 g/dL (6.3-8.2)
[2019-06-19 19:53] LABS: ACETAMINOPHEN < 10 ug/mL (10-30); ALCOHOL < 10 mg/dL (NONE DETECTED); SALICYLATE < 1.0 mg/dL (2.0-20.0)
[2019-06-20 06:34] VITALS: BP 110/55
--- NOTE | 2019-06-20 09:45 | ER Document Report ---
Doctor's Note Notes: 06/20/19 09:43 Patient seen and examined. She is very apologetic about her behavior yesterday. She apologized to this physician, as well as the remainder of staff. She states that she had been upset. She admits she had been drinking the night before, took a Xanax, and was unwillingly dosed with Ene. She does admit that she has had suicidal ideations for some time. She would like to go and get some help for that. She also asks if she can call her mother to apologize. On physical exam is a 21-year-old female who appears her stated age in no acute distress. She is intermittently tearful, but appropriate with examiner. Heart is regular rate and rhythm, lungs are clear to auscultation. Skin is warm and dry. In short this is a patient with an extensive psychiatric history, multiple substances present on UDS, who came in with suicidal ideation. Per psychosocial evaluation, likely disposition to [facility]. We will continue to monitor, disposition is appropriate.
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
== END 2019-06-20 14:12 | disposition home or self-care (01) ==
LOC: ER 15:37
DX: R45.851 Suicidal ideations (principal); F14.10 Cocaine abuse, uncomplicated; F12.10 Cannabis abuse, uncomplicated; F13.10 Sedative, hypnotic or anxiolytic abuse, uncomplicated; Z62.820 Parent-biological child conflict; R45.4 Irritability and anger
CPT/HCPCS: 99285; 96372; 36415; 80307 ×4; 84703; 85025; 80053; 81001; J3486

== ENCOUNTER 2020-07-06 18:05 | Emergency (ER) | payer SELFPAY ==
--- NOTE | 2020-07-06 18:15 | ER Document Report ---
ED Medical Screen (RME) - General Chief Complaint: Sore Throat Stated Complaint: SORE THROAT,COUGH,CONGESTION Time Seen by Provider: 07/06/20 18:11 Primary Care Provider: ELIGIO OLSON FNP-C [Primary Care Provider] - Follow up as needed Mode of Arrival: Ambulatory Information source: Patient Notes: 24-year-old female presents to ED for runny nose congestion cough and sore throat. She states she does not know of anybody she has been around that had COVID but she thinks everybody has it now. She is with her friend who is also have a very sore throat and runny nose. Last menstrual cycle started yesterday. She states she does smoke cigarettes, uses marijuana, and smokes maybe 3 times a month. Will order strep flu chest x-ray and call the test and she will be seen by another provider. I have greeted and performed a rapid initial assessment of this patient. A comprehensive ED assessment and evaluation of the patient, analysis of test results and completion of medical decision making process will be conducted by an additional ED providers. TRAVEL OUTSIDE OF THE [place] IN LAST 30 DAYS: No - Related Data Allergies/Adverse Reactions: ibuprofen [From Advil] Adverse Reaction (Verified 05/06/18 10:13) naproxen [From Aleve] Adverse Reaction (Verified 05/06/18 10:13) quetiapine fumarate [From Seroquel] Adverse Reaction (Verified 05/06/18 10:13) felt like brain exploded Past Medical History Renal/ Medical History: Reports: Hx Pelvic Inflammatory Disease. Denies: Hx Peritoneal Dialysis Psychiatric Medical History: Reports: Hx Attention Deficit Hyperactivity Disorder, Hx Depression - Immunizations Immunizations up to date: Yes Hx Diphtheria, Pertussis, Tetanus Vaccination: Yes Doctor's Discharge - Discharge Referrals: ELIGIO OLSON FNP-C [Primary Care Provider] - Follow up as needed
--- NOTE | 2020-07-06 21:25 | ER Document Report ---
ED General - General Chief Complaint: Sore Throat Stated Complaint: SORE THROAT,COUGH,CONGESTION Time Seen by Provider: 07/06/20 18:11 Primary Care Provider: ELIGIO OLSON FNP-C [Primary Care Provider] - Follow up as needed Mode of Arrival: Ambulatory Notes: Patient is a 24-year-old female that comes emergency department for chief complaint of congestion, mild sore throat, occasional runny nose, and occasional mild cough. She states that she has had symptoms for about 2.5 days. She states that she has been around her family member who has been having the same symptoms. Patient states she smokes cigarettes and has been smoking a lot recently with her family member and she thinks "it is just because we have been smoking too much". She denies fever, headache, shortness of breath, chest pain, difficulty swallowing, abdominal pain. She denies . She denies any current medications, denies recreational drugs other than marijuana. TRAVEL OUTSIDE OF THE [place] IN LAST 30 DAYS: No - Related Data Allergies/Adverse Reactions: ibuprofen [From Advil] Adverse Reaction (Verified 05/06/18 10:13) naproxen [From Aleve] Adverse Reaction (Verified 05/06/18 10:13) quetiapine fumarate [From Seroquel] Adverse Reaction (Verified 05/06/18 10:13) felt like brain exploded Past Medical History - General Information source: Patient - Social History Smoking Status: Current Every Day Smoker Smoking Education Provided: Yes - <3 min Drug Abuse: None Lives with: Family Family History: Other - Mom has breast cancer Renal/ Medical History: Reports: Hx Pelvic Inflammatory Disease. Denies: Hx Peritoneal Dialysis Psychiatric Medical History: Reports: Hx Attention Deficit Hyperactivity Disorder, Hx Depression - Immunizations Immunizations up to date: Yes Hx Diphtheria, Pertussis, Tetanus Vaccination: Yes Review of Systems - Review of Systems Constitutional: See HPI EENT: See HPI Cardiovascular: No symptoms reported Respiratory: See HPI Gastrointestinal: No symptoms reported Genitourinary: No symptoms reported Female Genitourinary: No symptoms reported Musculoskeletal: No symptoms reported Skin: No symptoms reported Hematologic/Lymphatic: No symptoms reported Neurological/Psychological: No symptoms reported Physical Exam - Vital signs Vitals: Temp Pulse Resp BP Pulse Ox 98.4 F 82 16 111/69 100 07/06/20 18:12 07/06/20 18:12 07/06/20 18:12 07/06/20 18:12 07/06/20 18:12 - Notes Notes: GENERAL: Alert, interacts well. No acute distress. HEAD: Normocephalic, atraumatic. EYES: Pupils equal, round, and reactive to light. Extraocular movements intact. ENT: Oral mucosa moist, tongue midline. Mild erythema the posterior pharynx, uvula unremarkable, no exudates noted, no evidence of peritonsillar abscess. airway patent. Nares patent, sinuses non-tender, ear canals unremarkable, TM's intact. NECK: Full range of motion. Supple. Trachea midline. Mild bilateral anterior cervical adenopathy, unremarkable submandibular area LUNGS: Clear to auscultation bilaterally, no wheezes, rales, or rhonchi. No respiratory distress. Non-tender chest wall. HEART: Regular rate and rhythm. No murmur ABDOMEN: Soft, non-tender. Non-distended. Bowel sounds present in all 4 quadrants. GENITOURINARY: Deferred EXTREMITIES: Moves all 4 extremities spontaneously. No edema, normal radial and dorsalis pedis pulses bilaterally. No cyanosis. BACK: no cervical, thoracic, lumbar midline tenderness. No saddle anesthesia, normal distal neurovascular exam. Moves all extremities in full range of motion. NEUROLOGICAL: Alert and oriented x3. Normal speech. Cranial nerves II through XII grossly intact. Strength 5/5 in all extremities. PSYCH: Normal affect, normal mood. SKIN: Warm, dry, normal turgor. No rashes or lesions noted. Course - Re-evaluation Re-evalutation: Patient with pharyngitis, mild erythema the posterior pharynx, anterior cervical adenopathy, she reports congestion and cough although I do not note this on exam. I did review work-up from triage including chest x-ray which was unremarkable, influenza test which was negative, and strep test which was negative. Patient is with her relative with the same symptoms, her relative per patient just tested positive for strep, patient is requesting treatment for strep, patient states she has had strep many times in the past and this feels the same. Patient is also requesting COVID-19 testing and her family member also got tested. This was performed. Patient placed on penicillin, I discussed expectations, follow-up, and return precautions. Patient states appreciation and agreement. Stable and well-appearing at time of discharge. - Vital Signs Vital signs: Temp Pulse Resp BP Pulse Ox 98.1 F 79 18 131/76 H 98 07/06/20 23:47 07/06/20 23:47 07/06/20 23:47 07/06/20 23:47 07/06/20 23:47 Discharge - Discharge Clinical Impression: Nasal congestion, Cough Pharyngitis Qualifiers: Pharyngitis/tonsillitis etiology: unspecified etiology Qualified Code(s): J02.9 - Acute pharyngitis, unspecified Condition: Stable Disposition: HOME, SELF-CARE Additional Instructions: Because of your symptoms, exam, and exposure to strep you are being treated for this as well. Take antibiotics as prescribed to completion. Take Tylenol if needed for pain, drink plenty fluids, rest. You have also been tested for COVID-19, you will be contacted with the results, please quarantine while awaiting the results. See additional instructions below. Follow-up with primary care. Return if you worsen including difficulty breathing, spiking fevers, difficulty swallowing, or any other concerning or worsening symptoms. As a person under investigation for COVID-19, the [place] Department of Health and Human Services (division on public health) advises you to adhere to the following guidance until your test results are reported to you. If your test result is positive, you will receive additional information from your provider and your local health department at that time. Remain at home until you are cleared by the health provider or public health authorities. Keep a log of visitors to your home, notify any visitors to your home of your isolation status. If you plan to move to a new address or leave the [facility], notify the local health department in your County. Call your Doctor or seek care if you have an urgent medical need. Before seeking medical care, call him to get instructions from the provider before arriving at the medical office, clinic, or hospital. Notify them that you are being tested for the virus (COVID-19) so that arrangements can be made, as necessary, to prevent transmission to others in the healthcare setting. Next, notify the local health department in your county. If a medical emergency arises and you need to call 911, inform the first responders that you are being tested for the virus that causes COVID-19. Next, notify the local health department in your county. Prescriptions: Penicillin V Potassium [Penicillin Vk 500 mg Tablet] 500 mg PO BID #20 tablet Referrals: ELIGIO OLSON FNP-C [Primary Care Provider] - Follow up as needed
--- NOTE | 2020-07-06 21:38 | RADIOLOGY REPORT (SQ) ---
EXAM DESCRIPTION: [facility]: XR CHEST 1 VIEW CLINICAL HISTORY: 24 years Female; cough smoker; COMPARISON: None. FINDINGS: Lungs: Lungs are clear, with no focal infiltrate, pneumothorax, or pleural effusion. No nodules. Mediastinum: Mediastinum is within normal limits for this positioning. Bones: Bony structures are unremarkable. IMPRESSION: 1. No acute pulmonary findings.
[2020-07-06 22:54] LABS: A TYPE INFLUENZA AG NEGATIVE (NEGATIVE); B INFLUENZA AG NEGATIVE (NEGATIVE)
[2020-07-06] MEDS ORDERED: PENICILLIN V POTASSIUM 500 MG TABLET PO ONE (23:24)
[2020-07-06 23:48] VITALS: BP 131/76
== END 2020-07-06 23:48 | disposition home or self-care (01) ==
LOC: ER 18:05
DX: J02.9 Acute pharyngitis, unspecified (principal); R05 Cough; R09.81 Nasal congestion; R09.89 Other specified symptoms and signs involving the circulatory and respiratory systems; F17.210 Nicotine dependence, cigarettes, uncomplicated; Z88.8 Allergy status to other drugs, medicaments and biological substances; Z20.828 Contact with and (suspected) exposure to other viral communicable diseases
CPT/HCPCS: 99284; 87070; 87880; 87635; 87077; 87804; 71045; C9803